=== PATIENT | female | born 1960 | race Caucasian/White ===

== ENCOUNTER → 2017-11-10 12:10 | Outpatient (CLI) | payer OTHER, SELFPAY ==
[2017-11-10 14:19] LABS: Anion Gap 7 (5-15); BUN 15 mg/dL (7-18); BUN/Creat Ratio 18.6 RATIO (10-20); Calcium,Total 9.2 mg/dL (8.5-10.1); Chloride 102 mmol/L (98-107); Creatinine, Serum 0.81 mg/dL (0.55-1.02); EST Glomerular Filtration Rate 78 mL/min (>60); Est Glom Filt Rate - Afr Amer 94 mL/min (>60); Glucose 86 mg/dL (74-106); Sodium Level 139 mmol/L (136-145)
== END ==
PROVIDERS: Visit Provider Nurse Practitioner Family
DX: I10 Essential (primary) hypertension (principal); R68.89 Other general symptoms and signs
CPT/HCPCS: 36415; 80048; 84443

== ENCOUNTER → 2018-04-07 13:33 | Outpatient (CLI) | payer OTHER, SELFPAY ==
--- NOTE | 2018-04-07 13:37 | BI_ITS ---
MAMMOGRAPHY - BILATERAL SCREENING 3-D ISMAEL SYNTHESIS REASON FOR EXAM: Female, 57 years old. Bilateral Screening 3-D tomosynthesis PERTINENT HISTORY: Asymptomatic. Right excisional breast biopsy 1997. Family breast carcinoma, maternal aunts and paternal uncle. TECHNIQUE: Digital bilateral breast ismael (3D mammographic acquisition) in the CC and MLO projections. 2-D mediolateral oblique (MLO) and craniocaudad (CC) views of both breasts were obtained. CAD: Full Field Digital Mammography with Computer Added Detection was performed. COMPARISON: 12/17/2016 FINDINGS: The breast composition is heterogeneously dense that can obscure small breast masses. No significant asymmetric density, architecture distortion, abnormal microcalcification cluster, dominant mass, adenopathy, skin thickening or nipple retraction identified. Coarse benign-appearing calcifications. BI/SCREENING MAMM (CAD), BILAT IMPRESSION: No mammographic signs of malignancy. Routine yearly mammograms recommended. ASSESSMENT CATEGORY: BIRADS Category 2: Benign. A letter regarding these results will be sent to the patient by the facility within 30 days. FOLLOW UP RECOMMENDATION: Yearly follow up mammogram recommended. (A) Negative mammographic results should not deter biopsy as a palpable lesion should be followed on clinical grounds and biopsy performed if clinically persistent for 3 months or increasing size. Approximately 10% of breast cancers are not detected by mammography. A normal mammogram should not delay biopsy of a clinically suspicious abnormality. Electronically Signed: Melquiades Dumont, at 22:14 EDT Tel , Service support ,
== END ==
PROVIDERS: Family Provider Family Medicine; PCP Family Medicine; Visit Provider Obstetrics & Gynecology
DX: Z12.31 Encounter for screening mammogram for malignant neoplasm of breast (principal)
CPT/HCPCS: 77063; 77067

== ENCOUNTER 2018-05-30 18:30 | Outpatient (RCR) | payer OTHER, SELFPAY ==
--- NOTE | 2018-04-01 13:14 | MASS.EVAL ---
Massage Therapy Evaluation: INITIAL EVALUATION: DATE: 03/16/18 PT NAME: SARAH RAMIREZ : 62 V#: [id number] REFERRING PHYS: DR. 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 MAZARIEGOS WITH A DIAGNOSIS OF BACK PAIN. SHE PRESENTS TODAY WITH THE SYMPTOMS OF PAIN IN THE LEFT SCAPULA AND TENSION THROUGHOUT THE NECK AND SHOULDERS. SHE REPORTS THAT THE PAIN IN 7/10 WORST AND A 0/10 AT REST. THE SYMPTOMS HAVE BEEN PRESENT FOR THE PAST FEW MONTHS AND COMMENCED DUE TO TRAVELLING AND WORKING. SHE RATES HER OVERALL HEALTH TO BE IN GOOD CONDITION WITH NO LIMITATIONS IN DAILY ACTIVITES. SARAH IS NOT TAKING AND MEDICATIONS CURRENTLY. OBJECTIVE: THE FIRST TREATMENT CONSISTED OF UPPER BODY MODERATE TO DEEP TISSUE MASSAGE. I FOCUSED ON CERVICAL AND THORACIC PARASPINALS, UPPER TRAPEZIUM, LEVATOR, SCALENES, RHOMBOIDS AND SERRATUS. TRIGGER POINT THERAPY AND NECK STRETCHES WERE PERFORMED. ASSESSMENT: MUSCLE TENSION AND TENDERNESS WAS MOST ON LEFT SIDE FROM T10-12 AND SERRATUS AND RHOMBOIDS. OVERALL THE STRESS LEVEL DECREASED POST MASSAGE AND THE TISSUES BECAME SOFTER AND LESS ROPEY. I FEEL THAT SARAH IS A GREAT CANDIDATE FOR MASSOTHERAPY AT THIS TIME I HAVE TREATED HER IN THE PAST WITH SUCCESS. PLAN: PLAN OF CARE WAS REVIEWED WITH THE PATIENT AND THE PATIENT IS TO BE SEEN ON A REGULAR BASIS FOR ONE HOUR SESSIONS FOR A TOTAL OF TEN VISITS IN 2018. KACEY WHATLEY LMT
--- NOTE | 2018-04-01 13:27 | MASS.EVAL_ITS ---
Massage Therapy Evaluation: INITIAL EVALUATION: DATE: 03/16/18 PT NAME: SARAH RAMIREZ : 62 V #: [id number] REFERRING PHYS: DR. 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 MAZARIEGOS WITH A DIAGNOSIS OF BACK PAIN. SHE PRESENTS TODAY WITH THE SYMPTOMS OF PAIN IN THE LEFT SCAPULA AND TENSION THROUGHOUT THE NECK AND SHOULDERS. SHE REPORTS THAT THE PAIN IN 7/10 WORST AND A 0/10 AT REST. THE SYMPTOMS HAVE BEEN PRESENT FOR THE PAST FEW MONTHS AND COMMENCED DUE TO TRAVELLING AND WORKING. SHE RATES HER OVERALL HEALTH TO BE IN GOOD CONDITION WITH NO LIMITATIONS IN DAILY ACTIVITES. SARAH IS NOT TAKING AND MEDICATIONS CURRENTLY. OBJECTIVE: THE FIRST TREATMENT CONSISTED OF UPPER BODY MODERATE TO DEEP TISSUE MASSAGE. I FOCUSED ON CERVICAL AND THORACIC PARASPINALS, UPPER TRAPEZIUM, LEVATOR, SCALENES, RHOMBOIDS AND SERRATUS. TRIGGER POINT THERAPY AND NECK STRETCHES WERE PERFORMED. ASSESSMENT: MUSCLE TENSION AND TENDERNESS WAS MOST ON LEFT SIDE FROM T10-12 AND SERRATUS AND RHOMBOIDS. OVERALL THE STRESS LEVEL DECREASED POST MASSAGE AND THE TISSUES BECAME SOFTER AND LESS ROPEY. I FEEL THAT SARAH IS A GREAT CANDIDATE FOR MASSOTHERAPY AT THIS TIME I HAVE TREATED HER IN THE PAST WITH SUCCESS. PLAN: PLAN OF CARE WAS REVIEWED WITH THE PATIENT AND THE PATIENT IS TO BE SEEN ON A REGULAR BASIS FOR ONE HOUR SESSIONS FOR A TOTAL OF TEN VISITS IN 2018. KACEY WHATLEY LMT
--- NOTE | 2018-08-27 13:43 | MASS.DISCH ---
Massage Therapy Discharge Summary: Discharge Date: 08/26/2018 Norah was seen for a massotherapy evaluation on 03/16/18 with the diagnosis of back pain and spasms. She was treated with three sessions of massage therapy consisting of moderate pressure soft tissue techniques, myofascial release and trigger point compression to her cervical and throcacic areas. Norah responded well to the therapy by reporting decreased tension in her upper- mid back. Her goals for therapy were not met throughout the treatment sessions due to not scheduling more appointments within the time frame given. At this time this patient is being discharged from our care at [facility] facility.
== END 2018-05-30 19:00 | disposition home or self-care (01) ==
LOC: MASS 18:30
PROVIDERS: Family Provider Family Medicine; PCP Family Medicine; Visit Provider Family Medicine
DX: M54.9 Dorsalgia, unspecified (principal)
CPT/HCPCS: 97124

== ENCOUNTER → 2019-04-20 | Outpatient (CLI) | payer OTHER, SELFPAY ==
[2018-01-25 14:48] VITALS: BMI 22.5
--- NOTE | 2019-04-20 10:22 | BI_ITS ---
MAMMOGRAPHY - BILATERAL SCREENING 3-D TOMOSYNTHESIS REASON FOR EXAM: Female, 58 years old. Bilateral Screening 3-D tomosynthesis PERTINENT HISTORY: Maternal aunt and paternal uncle with breast cancer. TECHNIQUE: 2-D mammograms and 3-D Tomosynthesis of the breast (s) were performed. CAD was performed. COMPARISON: 04/07/18 and 01/16/2016 FINDINGS: The breast composition is heterogeneously dense that can obscure small breast masses. Scattered benign calcifications are seen. No dense spiculated masses or suspicious microcalcifications are identified. No architectural distortion is identified. There is no skin thickening or retraction. There has been no significant change since the prior study. BI/SCREEN MAMM (CAD) W/ISMAEL BILAT IMPRESSION: No mammographic signs of malignancy. Routine yearly mammograms recommended. ASSESSMENT CATEGORY: BIRADS Category 2: Benign. A letter regarding these results will be sent to the patient by the facility within 30 days. FOLLOW UP RECOMMENDATION: Yearly follow up mammogram recommended. (A) Approximately 10% of breast cancers are not detected by mammography. A normal mammogram should not delay biopsy of a clinically suspicious abnormality. Electronically Signed: Alvino Mckeon MD at 16:19 EDT Tel [phone], Service support ,
[2019-04-20 11:23] LABS: Hemoglobin A1c 5.5 % (4.2-6.3)
[2019-04-20 11:32] LABS: Thyroid Stim Hormone (TSH) 3.26 uIU/mL (0.358-3.74)
== END | disposition home or self-care (01) ==
LOC: OPBI 10:16
PROVIDERS: Family Provider Family Medicine; PCP Family Medicine; Referring Provider Obstetrics & Gynecology; Visit Provider Obstetrics & Gynecology
DX: R53.83 Other fatigue (principal); Z02.1 Encounter for pre-employment examination; Z12.31 Encounter for screening mammogram for malignant neoplasm of breast
CPT/HCPCS: 36415; 77063; 77067; 83036; 84443

== ENCOUNTER 2019-09-25 10:48 | Outpatient (RCR) | payer OTHER, SELFPAY ==
--- NOTE | 2019-09-26 15:11 | MASS.EVAL_ITS ---
Massage Therapy Evaluation: Initial Evaluation Date: 09/25/2019 SUBJECTIVE: Norah is a 59 year old female who was referred to the [facility] for a massotherapy evaluation by Dr. Villegas with the diagnosis of right shoulder pain. She presents today with the symptoms of pain, stiffness and tension in the neck, mid back, and right shoulder. She has reported that she gets pain into her right wrist. she reports of minimal relief with stretching. She did report that she does get relief if she runs consistantly. OBJECTIVE: Upon observation Norah has some posture issues with her head and shoulders forward from the neutral position in sitting and standing. After examination and palpation, I found Norah to have high muscle tension with tenderness and myofascial restrictions in her sub occipitals, levator scapulae, trapezius, rhomboids, scalenes, and thoracic paraspinals. Her QL?s, lumbar paraspinals, piriformis, glute medius and minimus all were very tight with fascial restrictions, tender points and trigger points. The first treatment consisted of a one hour massage to her upper body with myofascial release, muscle stripping, trigger point compression techniques, and cervical manual traction. ASSESSMENT: I feel that Norah is a good candidate for massotherapy at this time. She had a favorable response to the first treatment with reduction in her muscle aches, pain and tension. She also had improvement in her cervical flexibility and low back flexibility. PLAN: The plan of care was reviewed with the patient. The patient is to be seen on an as needed basis for a total of ten sessions with the recommendation of once every month for a one hour treatment.
--- NOTE | 2020-08-12 12:36 | MASS.DISCH ---
Massage Therapy Discharge Summary: Discharge Date: 08/12/2020 Norah was seen for a massotherapy evaluation on 09/25/2019 with the diagnosis of right shoulder pain. She was treated with one session of massage therapy consisting of deep pressure soft tissue techniques, myofascial release and trigger point compression to her cervical, thoracic, and low back. At this time this patient is being discharged from our care at [facility] facility.
== END 2019-09-25 19:00 | disposition home or self-care (01) ==
LOC: MASS 10:48
PROVIDERS: PCP Nurse Practitioner Family; Referring Provider Nurse Practitioner Family; Visit Provider Nurse Practitioner Family
DX: M25.511 Pain in right shoulder (principal)
CPT/HCPCS: 97124

== ENCOUNTER 2020-03-05 10:28 | Emergency (ER) | payer OTHER, SELFPAY ==
[2020-03-05 10:29] VITALS: BP 149/98; PULSE 83; RESP 15; TEMP 36.4; O2SAT 97; BMI 22.4
--- NOTE | 2020-03-05 10:38 | ED.VIS.GEN ---
History of Present Illness Chief Complaint: Lower Extremity Injury Informant: Patient Onset: Today Narrative: Left knee injury while working upstairs. Tripped over IV tubing on a flexed knee. No head injuries. Able to ambulate. No paresthesias. No past medical history. Able to tolerate Motrin. No history of gastric ulcers or kidney injury. Prior similar symptoms: No Past Medical History - Allergies and Home Meds Allergies/Adverse Reactions: Allergies acetaminophen [From Darvocet-N] Allergy (Severe, Verified 03/05/20 10:33) Unknown propoxyphene [From Darvocet-N] Allergy (Severe, Verified 03/05/20 10:33) Unknown codeine Adverse Reaction (Verified 03/05/20 10:33) Upset Stomach Primary Care Physician: Tiara Villegas NP-C [Primary Care Provider] - Past Medical History: - - Hypertension Smoking Status: Never smoker Review of Systems General: Denies: Chills, Fever, Sweats Eyes: Denies: Visual changes - bilaterally, Diplopia ENT: Denies: Rhinorrhea, Sore throat Cardiovascular: Denies: Chest pain, Palpitations Respiratory: Denies: Dyspnea, Cough, Dyspnea on exertion Gastrointestinal: Denies: Abdominal pain, Nausea, Vomiting, Diarrhea, Melena, Hematochezia Genitourinary: Denies: Dysuria, Hematuria, Frequency Musculoskeletal: Reports: Arthralgias. Denies: Back pain, Extremity Pain Skin: Denies: Rash, Wounds Neurological: Denies: Headache, Weakness, Numbness Physical Exam Vital Signs/Narrative: Vital Signs Temp Pulse Resp BP Pulse Ox 03/05/20 10:29 97.6 F L 83 15 149/98 H 97 Inital Vital Signs reviewed: Yes General: Well nourished, Well developed, No Acute Distress Head: Normocephalic, Atraumatic Eyes: Perrl, EOMI ENT: Moist mucous membranes, No rhinorrhea Neck: Supple, Nontender Cardiovascular: Regular rate, Regular rhythm, No murmurs Respiratory: No distress, CTA bilaterally, Chest nontender Abdomen: Soft, Nontender, Nondistended, Normal bowel sounds Back: Nontender, Normal Inspection Extremities: No edema, - - Left lower extremity negative logroll, knee extensor mechanism intact. Mild tenderness inferior patellar and proximal tibia. Negative varus and valgus. No deformities. Skin intact. Neuro vas intact distally. Skin: Normal color, No rash Neurological: Alert, Oriented x3, Cranial nerves II-XII grossly intact, Normal Strength, Normal Sensation Psychological: Normal affect, Normal Mood Diagnostic/Tx/Re-eval - Medical Decision Making Clinical Impression(s) from Imaging Studies Knee X-Ray 03/05/20 10:45 IMPRESSION: Normal x-ray examination of the knee. Electronically Signed: Darren Maurer, at 11:08 EDT , Service support , Ice was placed, Motrin given. X-ray obtained was negative. Patient reports difficulty walking, Mango wrap provided. She preferred to use a walker for stabilization. She is given appropriate work restrictions. She will continue Motrin every 6 hours as needed and follow-up with occupational health. All questions were answered. ED Disposition - Plan for ED Patient: Disposition: Home or Assisted Living Diagnosis: Contusion of left knee, initial encounter Instructions: ED EXTREMITY CONTUSION Lower Referrals: Tiara Villegas, JASON-C [Primary Care Provider] - Additional Instructions: Follow-up with now clinic to 3 days reevaluation and further clearance as needed. Continue Motrin total of 600 mg every 6 hours as needed for pain control. Mango wrap and walker use as needed.
--- NOTE | 2020-03-05 10:45 | RAD_ITS ---
STUDY: X-RAY - LEFT KNEE REASON FOR EXAM: Female, 59 years old. Knee pain from fall today. Pain is just inferior to the patella. TECHNIQUE: 4 view(s) of the knee. COMPARISON: None. FINDINGS: Normal visualized distal femur. Normal visualized proximal tibia and fibula. Normal proximal tibiofibular articulation. Normal medial femorotibial compartment. Normal lateral femorotibial compartment. Normal patellofemoral articulation. The soft tissue structures are unremarkable. RAD/Knee 4 or More Views IMPRESSION: Normal x-ray examination of the knee. Electronically Signed: Darren Maurer, at 11:08 EDT , Service support ,
[2020-03-05] MEDS: Ibuprofen 600 MG Tablet PO (10:56)
== END 2020-03-05 11:49 | disposition home or self-care (01) ==
PROVIDERS: Emergency Provider Emergency Medicine; PCP Nurse Practitioner Family
DX: S80.02XA Contusion of left knee, initial encounter (principal); W01.0XXA Fall on same level from slipping, tripping and stumbling without subsequent striking against object, initial encounter; Y93.9 Activity, unspecified; Y92.9 Unspecified place or not applicable
CPT/HCPCS: 73564; 99283

== ENCOUNTER → 2020-03-16 07:28 | Outpatient (CLI) | payer OTHER, SELFPAY ==
[2020-03-11 16:05] VITALS: BMI 22.4
--- NOTE | 2020-03-16 07:33 | MRI_ITS ---
STUDY: MRI LEFT KNEE REASON FOR EXAM: Female, 59 years old. Contusion. Fall February 28, 2020. Pain TECHNIQUE: Standardized fat and water weighted pulse sequences were obtained in all 3 orthogonal planes. COMPARISON: X-ray March 05, 2020 FINDINGS: There is intra-substance myxoid degeneration of the medial meniscus, but without a demonstrated meniscal tear. Normal hyaline cartilage of the medial femorotibial compartment. Normal medial femoral condyle and tibial plateau. Normal medial collateral ligamentous complex (MCL). Normal distal semimembranosus, gracilis and semitendinosus tendons. Normal lateral meniscus. Normal hyaline cartilage of the lateral femorotibial compartment. There is reactive marrow edema of the lateral tibial plateau, series 3 images 30 through . There is linear diminished signal nondisplaced fracture, series 6 images 07/29 through . Normal proximal tibiofibular articulation. Normal lateral collateral (fibular) ligament. Normal popliteus tendon. Normal biceps femoris tendon. Normal anterior cruciate ligament (ACL). Normal posterior cruciate ligament (PCL). Normal congruent patellofemoral articulation. Normal hyaline cartilage of the patellofemoral compartment. Normal medial and lateral patellar retinaculum. Normal quadriceps tendon. Normal patellar tendon. Normal Hoffa''s fat pad. There is a moderate volume joint effusion. The soft tissues are unremarkable. The otherwise visualized osseous structures are unremarkable. MRI/Lower Ext Joint Only (Routine) IMPRESSION: Lateral tibial plateau fracture. Joint effusion. Electronically Signed: Jeff Mcduffie MD at 9:28 EDT , Service support ,
== END ==
PROVIDERS: PCP Nurse Practitioner Family; Referring Provider Physician Assistant; Visit Provider Physician Assistant
DX: S80.02XA Contusion of left knee, initial encounter (principal)
CPT/HCPCS: 73721

== ENCOUNTER → 2020-04-17 08:41 | Outpatient (CLI) | payer OTHER, SELFPAY ==
[2020-04-17 07:54] VITALS: BMI 22.4
--- NOTE | 2020-04-17 08:42 | RAD_ITS ---
STUDY: X-RAY - LEFT KNEE REASON FOR EXAM: Female, 59 years old. LATERAL TIBIAL PLAT FX FOLLOW UP TECHNIQUE: 4 view(s) of the knee. COMPARISON: 03/05/2020 FINDINGS: Normal visualized distal femur. Normal visualized proximal tibia and fibula. Normal proximal tibiofibular articulation. Normal medial femorotibial compartment. Normal lateral femorotibial compartment. Normal patellofemoral articulation. The soft tissue structures are unremarkable. RAD/Knee 4 or More Views IMPRESSION: Normal x-ray examination of the knee. Electronically Signed: Thierry Bradshaw MD at 16:17 EDT Tel , Service support ,
== END ==
PROVIDERS: PCP Nurse Practitioner Family; Referring Provider Orthopaedic Surgery; Visit Provider Orthopaedic Surgery
DX: S80.02XA Contusion of left knee, initial encounter (principal)
CPT/HCPCS: 73564

== ENCOUNTER → 2020-05-10 | Outpatient (CLI) | payer OTHER, SELFPAY ==
[2020-04-17 07:54] VITALS: BMI 22.4
[2020-05-15 20:24] LABS: HPV APTIMA, High Risk Negative (Negative)
[2020-05-15 20:25] LABS: HPV Reflexed? YES, CHARGE PATIENT
== END | disposition home or self-care (01) ==
LOC: LABSPEC 14:30
PROVIDERS: PCP Student in an Organized Health Care Education/Training Program; Visit Provider Student in an Organized Health Care Education/Training Program
DX: Z12.4 Encounter for screening for malignant neoplasm of cervix (principal)
CPT/HCPCS: 87624; 88175; G0145

== ENCOUNTER 2020-06-03 07:00 | Outpatient (RCR) | payer OTHER, SELFPAY ==
[2020-04-17 07:54] VITALS: BMI 22.4
--- NOTE | 2020-04-29 09:22 | HP.PTEVAL_ITS ---
Patient's Visit Information SARAH RAMIREZ is a 59 year old F referred to Physical Therapy by Dr. George Bhardwaj DO with a diagnosis of Left Tibial Plateau Fracture. Date of Evaluation: 04/29/20 Physical Therapist: Eloise Cárdenas DPT - Visit Plan Frequency: 3x /Week Duration: 4 Weeks Plan: LE strength and functional mobility- GENTLE and slow progression - Subjective Tripped on IV tubing March 05 and went down on the left knee. They took her straight to x-ray- showed no fracture- she had an MRI- showed a left tibial plateau fracture. Got weight bearing on Apr 24. Still wants her to wear support with the brace and is using a w/c if she goes long distances or a quad cane- tried a single point cane 10 days ago and did not feel it gave her enough stability. Is wearing a hinged knee brace all the time including sleeping. Pain is located in the later aspect of the knee- generally she does not have pain but when she walks longer distances its painful 1-2/10. Radiates to the ankle- no radiating pain to into thigh. Describes the pain as sharp. Most of the time she is painfree. No N/T in the toes. Does have some mild backpain but that is not uncommon but nothing she is to worried about. No buckling of the knee but does not feel like its stable. 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 Sleep: slightly- wearing the brace- not horrible- belly sleeper. PMHx/Meds: none since injury. Very active- bike, run and yoga- was supposed to go on a 300 mile bike ride prior to injury. - Objective Posture: FH, RS- can correct with verbal cues. Gait: antalgic- hinged knee brace on the left without full extension for heel strike. HR/TR: able with UE A. SLS: 8 sec then LOB. ROM: 5-145 degrees. Strength: Ankle: 5/5, Knee: quad set visible with moderate quad atrophy- no lag with SLR- Hip: 4+/5 throughout Core: fair plus. Flex: HS: mild, Gastroc: mild. Stairs: asc/desc 8 recip with 1 HR- hesistant with ascent and poor control with descent. - Goals Goal 1:: Patient will be I with HEP and progression Goal Time Frame: 4-6 Weeks Goal 2:: Patient will ambulate >300 feet with a normalized gait pattern Goal Time Frame: 4-6 Weeks Goal 3:: Patient will SLS for 30 sec without LOB Goal Time Frame: 4-6 Weeks Goal 4:: Patient will report 0/10 pain for 1 week Goal Time Frame: 4-6 Weeks - Rehabilitation Potential Physical Therapy Diagnosis: Patient presents with hypomobility- she has decreased ROM, strength and muscular endurance leading to increased pain and decreased ability to perform ADL's. Rehabilitation Potential: Good - Anticipated Interventions Patient/Client Instruction: Educate patient on: Benefits of Fitness Program Therapeutic Exercise to Include: Strength training, Endurance training, Balance training, Body mechanics, Postural training, Flexibilty training, Gait and locomotor training, Passive ROM, Active ROM, Dynamic Lumbar Stabilization, Scapular Strength/Stabilization For the Purpose of:: To improve muscle performance and motor function TENS: Yes Cryotherapy (ice pack, ice massage): Yes Thermo therapy (hot pack): Yes For the Purpose of:: To decrease pain Thank you for the opportunity to evaluate your patient. For Medicare and Medicare HMO plans, please review the plan of care and approve it. It will need to be FAXED BACK to us at [phone] for Medicare purposes. For Medicare only, by signing this I certify the plan of care. Please let me know if there are questions or concerns regarding this plan of care. Physician Lisa minaya: Date:
--- NOTE | 2020-06-03 07:22 | HP.PTREVAL_ITS ---
Dr. George Bhardwaj, DO, It has been my pleasure to treat SARAH RAMIREZ over the last 12 visits for Left Tibial Plateau Fracture. Please see the progress note below for an update on the physical therapy plan of care! Subjective: Patient feels that the knee is not as strong as the other knee- is still wearing the brace all the time again due to the set back. 85% due to not having out of the brace. Sees the MD Wednesday. Steps she has pain in the front of the knee- more going down than up- 2/10- instantly goes away after she does the stairs. Moving quickly she has the sensation of lack of stability which is getting better. Is not back to work yet- but plans to go back after she sees the MD on . Feels that she may need more therapy due to her goals and the set back. Objective/Function: Posture: good throughout treatment session in supported and unsupported sitting. Gait: slightly antalgic- mild decrease stance on the left LE. HR/TR: able with UE A. Heel Walking increased discomfort in the anterior knee Toe Walking: no pain SLS: 15 sec with significant ankle instability and arm swing for balance. ROM: 0-145 degrees. Strength: Ankle: 5/5, Knee: 4+/5 Hip: 4+/5 throughout Core: fair plus. Flex: HS: mild, Gastroc: mild. Stairs: asc/desc 8 recip with no HR- Acend good propulsion with the left LE- reji cending: poor eccentric control on the left and reports discomfort Plan Plan: Continue 2x a week for 4 weeks pending C9 approval from physician- working towards goals of biking long distance (endurance), eccentric strength for stairs- and return to running as able Goals Goal 1:: Patient will be I with HEP and progression Goal Time Frame: 4-6 Weeks Goal Progress: Progressing Goal 2:: Patient will ambulate >300 feet with a normalized gait pattern Goal Time Frame: 4-6 Weeks Goal Progress: Progressing Goal 3:: Patient will SLS for 30 sec without LOB Goal Time Frame: 4-6 Weeks Goal Progress: Progressing Goal 4:: Patient will report 0/10 pain for 1 week Goal Time Frame: 4-6 Weeks Goal Progress: Progressing Anticipated Interventions Patient/Client Instruction: Educate patient on: Benefits of Fitness Program Therapeutic Exercise to Include: Strength training, Endurance training, Balance training, Body mechanics, Postural training, Flexibilty training, Gait and locomotor training, Passive ROM, Active ROM, Dynamic Lumbar Stabilization, Scapular Strength/Stabilization For the Purpose of:: To improve muscle performance and motor function TENS: Yes Cryotherapy (ice pack, ice massage): Yes Thermo therapy (hot pack): Yes For the Purpose of:: To decrease pain Please do not hesitate to contact me at [phone] by phone or if you have questions or concerns regarding this new plan of care! Sincerely, SCOTTY MendietaT
--- NOTE | 2020-08-08 11:44 | HP.PT.NRP ---
SARAH RAMIREZ was seen in my office for initial evaluation on 04/29/20. The following Plan of Care was established for this patient: Initial Frequency: 3x /Week Initial Duration: 4 Weeks Patient/Client Instruction: Educate patient on: Benefits of Fitness Program Therapeutic Exercise to Include: Strength training, Endurance training, Balance training, Body mechanics, Postural training, Flexibilty training, Gait and locomotor training, Passive ROM, Active ROM, Dynamic Lumbar Stabilization, Scapular Strength/Stabilization For the Purpose of:: To improve muscle performance and motor function TENS: Yes Cryotherapy (ice pack, ice massage): Yes Thermo therapy (hot pack): Yes For the Purpose of:: To decrease pain This patient was last seen in our office . Pertinent comments regarding their Physical therapy will appear below: Patient has not returned to PT in over 8 weeks- appropriate for discharge with continuation of HEP and return to MD for further evaluation. At this point I will be discontinuing this patient from physical therapy. I would be happy to see this patient again in the future if found appropriate by the physician. Thank you! Eloise Cárdenas DPT
== END 2020-06-03 19:00 | disposition home or self-care (01) ==
LOC: PT 07:00
PROVIDERS: PCP Nurse Practitioner Family; Referring Provider Orthopaedic Surgery; Visit Provider Orthopaedic Surgery
DX: S82.143D Displaced bicondylar fracture of unspecified tibia, subsequent encounter for closed fracture with routine healing (principal); S80.02XD Contusion of left knee, subsequent encounter
CPT/HCPCS: 97110; 97161; 97164

== ENCOUNTER → 2020-08-26 07:18 | Outpatient (CLI) | payer OTHER, SELFPAY ==
[2020-03-20 10:24] VITALS: BMI 22.4
[2020-06-05 08:05] VITALS: BMI 22.4
--- NOTE | 2020-08-26 07:20 | BI_ITS ---
MAMMOGRAPHY - BILATERAL SCREENING REASON FOR EXAM: Female, 60 years old. Routine annual screening examination. PERTINENT HISTORY: FM HX 3 MAT AUNTS AGES 50,70,80, PAT UNCLE 60''S, QUIT OTC HRT IN 2013, RT EXC BX 1997 TECHNIQUE: Digital bilateral breast ismael (3D mammographic acquisition) in the CC and MLO projections. 2-D mediolateral oblique (MLO) and craniocaudad (CC) views of both breasts were obtained. CAD: Full Field Digital Mammography with Computer Added Detection was performed. COMPARISON: None. FINDINGS: Breast Composition: There is a cluster of microcalcification is tagged by CAD for which further evaluation by magnification views and ultrasound would be recommended. No other significant abnormalities are identified. BI/SCREEN MAMM (CAD) W/ISMAEL BILAT IMPRESSION: Further imaging evaluation recommended, as described above. (E) ASSESSMENT CATEGORY: BIRADS Category 0: Incomplete. Need additional imaging evaluation. A letter regarding these results will be sent to the patient by the facility within 30 days. Approximately 10% of breast cancers are not detected by mammography. A normal mammogram should not delay biopsy of a clinically suspicious abnormality. [id number] Electronically Signed: Timbo Ambrosio, at 7:09 EST Tel , Service support ,
== END ==
PROVIDERS: PCP Nurse Practitioner Family; Referring Provider Student in an Organized Health Care Education/Training Program; Visit Provider Student in an Organized Health Care Education/Training Program
DX: Z12.31 Encounter for screening mammogram for malignant neoplasm of breast (principal)
CPT/HCPCS: 77063; 77067

== ENCOUNTER → 2020-12-27 08:05 | Outpatient (CLI) | payer OTHER, SELFPAY ==
[2020-06-05 08:05] VITALS: BMI 22.4
--- NOTE | 2020-12-27 08:09 | US_ITS ---
STUDY: ULTRASOUND OF THE FEMALE PELVIS - COMPLETE REASON FOR EXAM: Female, 60 years old. Postmenopausal bleeding. LMP: The patient is postmenopausal. TECHNIQUE: Transabdominal and Transvaginal TECHNICAL QUALITY: Adequate. COMPARISON: None. FINDINGS: The uterus is retroverted and is in a midline position. The uterus measures 4.7 cm x 2.9 cm x 2.4 cm. There is a Nabothian cyst of the cervix. The endometrium measures 1.3 mm in thickness, and is hyperechoic. There is no demonstrated endometrial mass. The myometrium is of heterogeneous echotexture although no focal fibroid is seen. I.U.D. - The patient does not have an I.U.D. The right ovary is visualized. The right ovary measures 2.6 cm x 1.7 cm x 0.8 cm. There is no right ovarian cyst or ovarian mass. There is no visualized right adnexal mass or complex lesion. There is normal arterial and normal venous vascularity. The left ovary is visualized. The left ovary measures 1.6 cm x 1.6 cm x 0.7 cm. There is no left ovarian cyst or ovarian mass. There is no visualized left adnexal mass or complex lesion. There is normal arterial and normal venous vascularity. There is minimal fluid surrounding the fundal portion of the uterus. The pre void volume of the bladder was 890 ml. Polycystic ovary disease: No. US/Transvaginal Non- IMPRESSION: Heterogeneous echotexture of the myometrium. Trace amount of fluid seen near the fundal portion of uterus. Electronically Signed: Darren Maurer MD at 12:55 EDT , Service support ,
--- NOTE | 2020-12-27 08:09 | US_ITS ---
STUDY: ULTRASOUND OF THE FEMALE PELVIS - COMPLETE REASON FOR EXAM: Female, 60 years old. Postmenopausal bleeding. LMP: The patient is postmenopausal. TECHNIQUE: Transabdominal and Transvaginal TECHNICAL QUALITY: Adequate. COMPARISON: None. FINDINGS: The uterus is retroverted and is in a midline position. The uterus measures 4.7 cm x 2.9 cm x 2.4 cm. There is a Nabothian cyst of the cervix. The endometrium measures 1.3 mm in thickness, and is hyperechoic. There is no demonstrated endometrial mass. The myometrium is of heterogeneous echotexture although no focal fibroid is seen. I.U.D. - The patient does not have an I.U.D. The right ovary is visualized. The right ovary measures 2.6 cm x 1.7 cm x 0.8 cm. There is no right ovarian cyst or ovarian mass. There is no visualized right adnexal mass or complex lesion. There is normal arterial and normal venous vascularity. The left ovary is visualized. The left ovary measures 1.6 cm x 1.6 cm x 0.7 cm. There is no left ovarian cyst or ovarian mass. There is no visualized left adnexal mass or complex lesion. There is normal arterial and normal venous vascularity. There is minimal fluid surrounding the fundal portion of the uterus. The pre void volume of the bladder was 890 ml. Polycystic ovary disease: No. US/Pelvic (Non ) IMPRESSION: Heterogeneous echotexture of the myometrium. Trace amount of fluid seen near the fundal portion of uterus. Electronically Signed: Darren Maurer MD at 12:55 EDT , Service support ,
== END ==
PROVIDERS: PCP Nurse Practitioner Family; Referring Provider Nurse Practitioner Family; Visit Provider Nurse Practitioner Family
DX: N95.0 Postmenopausal bleeding (principal)
CPT/HCPCS: 76830; 76856

== ENCOUNTER → 2021-07-02 07:18 | Outpatient (CLI) | payer OTHER, SELFPAY ==
[2021-07-02 08:35] LABS: ALB/GLOB Ratio 0.9 RATIO (0.9-2.4); AST(SGOT) 27 U/L (15-37); Alanine Aminotransfer ALT/SGPT 36 U/L (13-56); Albumin, Serum 3.6 g/dL (3.2-5.0); Alkaline Phosphatase 85 U/L (45-117); Anion Gap 5 (5-15); BUN 19 mg/dL (7-18); BUN/Creat Ratio 23.2 RATIO (10-20); Calcium,Total 8.7 mg/dL (8.5-10.1); Chloride 106 mmol/L (98-107); Cholesterol 183 mg/dL (200); Creatinine, Serum 0.82 mg/dL (0.55-1.02); EST Glomerular Filtration Rate 76 mL/min (>60); Est Glom Filt Rate - Afr Amer 92 mL/min (>60); Globulin 3.8 g/dL (2.2-4.2); Glucose 92 mg/dL (74-106); High Density Lipoprotein 56 mg/dL; Protein, Total 7.4 g/dL (6.4-8.2); Sodium Level 139 mmol/L (136-145); Thyroid Stim Hormone (TSH) 2.43 uIU/mL (0.358-3.74); Triglycerides 94 mg/dL; Very Low Density Lipoprotein 19 mg/dL (5-40)
== END ==
PROVIDERS: PCP Nurse Practitioner Family; Referring Provider Nurse Practitioner Family; Visit Provider Nurse Practitioner Family
DX: Z13.1 Encounter for screening for diabetes mellitus (principal); Z13.29 Encounter for screening for other suspected endocrine disorder; Z13.6 Encounter for screening for cardiovascular disorders
CPT/HCPCS: 36415; 80053; 80061; 84439; 84443

== ENCOUNTER 2021-07-02 08:58 | Outpatient (RCR) | payer OTHER, SELFPAY ==
--- NOTE | 2021-07-14 15:17 | MASS.EVAL_ITS ---
Massage Therapy Evaluation: INITIAL EVALUATION : DATE: 07/02/21 PT NAME: SARAH RAMIREZ : 1960 V#: [id number] REF PHYS: DR. 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 SHE WAS REFERRED TO [facility] FOR A MASSOTHERAPY EVALUATION BY DR. JIMÉNEZ WITH A DIAGNOSIS CHRONIC SHOULDER AND BACK PAIN. SHE PRESENTS TODAY WITH PAIN IN THE LEFT SERRATUS AND RHOMBOID AREA. 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 SHE RATES HER OVERALL HEALTH TO BE IN GREAT CONDITION WITH LIMITATIONS WITH EVERY DAY TASKS. NO MEDICATIONS WERE LISTED AT THIS TIME. OBJECTIVE: THE FIRST TREATMENT CONSISTED OF A ONE HOUR DEEP TISSUE MASSAGE TO THE UPPER BODY. I FOCUSED ON THE CERVICAL AND THORACIC PARASPINALS, LEVATOR, TERES, RHOBOIDS, AND SERRATUS. TRIGGER POINT THERAPY AND NECK STRETCHES WERE PERFORMED. ASSESSMENT: UPON PALPATION THE PATIENT HAD VERY TIGHT MUSCLES WITH ACTIVE TRIGGER POINTS THAT REFERRED PAIN. THE LEFT SIDE SEEMED TO BE WHERE THE MOST PAIN AND PROBLEM AREAS WERE AT. I FEEL THAT SARAH IS A GREAT CANDIDATE FOR MASSOTHERAPY AT THIS TIME. PLAN: THE PLAN OF CARE WAS REVIEWED WITH THE PATIENT . THE PATIENT IS TO BE SEEN ON A REGULAR BASIS TILL MUSCLES HAVE RELAXED AND PAIN HAS SUBSIDED.
--- NOTE | 2021-08-12 12:39 | DS.PCM_ITS ---
Massage Therapy Discharge Summary: Initial Evaluation Date: 07/02/21 Diagnosis: Back and shoulder pain No. of Visits: 1 Date of last visit: 07/02/21 This patient is being discharged from our care at the [facility]. Thank you, Lee Ann Hooper LMT
== END 2021-07-02 19:00 | disposition home or self-care (01) ==
LOC: MASS 08:58
PROVIDERS: PCP Nurse Practitioner Family; Referring Provider Nurse Practitioner Family; Visit Provider Nurse Practitioner Family
DX: M54.9 Dorsalgia, unspecified (principal); M25.519 Pain in unspecified shoulder
CPT/HCPCS: 97124

== ENCOUNTER → 2021-07-22 07:08 | Outpatient (CLI) | payer OTHER, SELFPAY ==
--- NOTE | 2021-07-22 07:11 | BI_ITS ---
MAMMOGRAPHY - BILATERAL SCREENING 3-D TOMOSYNTHESIS REASON FOR EXAM: Female, 61 years old. Routine screening PERTINENT HISTORY: No significant family history. TECHNIQUE: 2-D mammograms and 3-D Tomosynthesis of the breast (s) were performed. CAD was performed. COMPARISON: 08/26/2020 FINDINGS: The breast composition is heterogeneously dense that can obscure small breast masses. Scattered benign calcifications are seen. No dense spiculated masses or suspicious microcalcifications are identified. No architectural distortion is identified. There is no skin thickening or retraction. Stable cluster of calcifications in the left breast There has been no significant change since the prior study. BI/SCRN MAMM (CAD)W/ISMAEL BILAT IMPRESSION: No mammographic signs of malignancy. Routine yearly mammograms recommended. ASSESSMENT CATEGORY: BIRADS Category 2: Benign. A letter regarding these results will be sent to the patient by the facility within 30 days. FOLLOW UP RECOMMENDATION: Yearly follow up mammogram recommended. (A) Approximately 10% of breast cancers are not detected by mammography. A normal mammogram should not delay biopsy of a clinically suspicious abnormality. Electronically Signed: Genaro Sandy MD at 10:33 EST , Service support ,
== END ==
PROVIDERS: PCP Nurse Practitioner Family; Referring Provider Nurse Practitioner Family; Visit Provider Nurse Practitioner Family
DX: Z12.31 Encounter for screening mammogram for malignant neoplasm of breast (principal)
CPT/HCPCS: 77063; 77067

== ENCOUNTER → 2023-07-19 | Outpatient (CLI) | payer SELFPAY ==
--- NOTE | 2023-07-19 07:42 | ART_ITS ---
Reason For Study: PVD Procedure A bilateral lower extremity continuous wave Doppler with analog waveform analysis,segmental pressures,and ankle brachial indexes with exercise. Left Segmental Pressures Left brachial= 129mmHg. Left posterior tibial artery = 152mmHg. Left dorsalis pedis artery = 144mmHg. Left digit = 87 mmHg. The left posterior tibial artery waveforms are triphasic. The left dorsalis pedis waveforms are triphasic. Right Segmental Pressures Right brachial= 126mmHg. Right posterior tibial artery = 155mmHg. Right dorsalis pedis artery = 150mmHg. Right digit = 93 mmHg. The right posterior tibial artery waveforms are triphasic. The right dorsalis pedis waveforms are triphasic. Indices The right ankle brachial index by the posterior tibial artery is 1.20. The right ankle brachial index by the dorsalis pedis is 1.16. The right digital-brachial index is 0.72. The right ankle brachial index by the posterior tibial artery post exercise is 1.19. The left ankle brachial index by the posterior tibial artery is 1.18. The left ankle brachial index by the dorsalis pedis is 1.12. The left digital-brachial index is 0.67. The left posterior tibial artery index post exercise is 1.23. VL/Lower Ext Art Exam w/ Exercise Interpretation Summary Right DEVANTE 1.2, normal. Doppler/PVR waveforms of the right leg normal at rest. T BI diminshed, pedal/digit disease vs spasm. Right lower extremity exhibits normal response to exercise. Left DEVANTE 1.18, normal. Doppler/PVR waveforms of the left leg normal at rest. TB I diminshed, pedal/digit disease vs spasm. Left lower extremity exhibits normal response to exercise. Ordering Physician: Trveor Mejia Referring Physician: ANAYA MEJIA Performed By: Dakota Huff, RVT
--- NOTE | 2023-07-19 07:42 | VDLE_ITS ---
Reason For Study: PVD RIGHT LEFT CFV is compressible, spontaneous, phasic, CFV is compressible, spontaneous, phasic, competent and demonstrates normal competent, and demonstrates normal augmentation. augmentation. FV is compressible, spontaneous, phasic, competent and demonstrates normal augmentation. POP V is compressible, spontaneous, phasic, competent and demonstrates normal augmentation. T/P Trunk is compressible. PTV is compressible. RT PerV is compressible. SFJ is competent and measures 0.54 cm. GSV proximal thigh measures 0.19 x 0.18 cm. GSV at knee measures 0.18 x 0.17 cm. GSV is competent throughout. SSV at junction is INCOMPETENT for greater than 0.5 seconds and measures 0.40 cm. SSV proximal calf is INCOMPETENT for greater than 0.5 seconds and measures 0.42 x 0.48 cm. Procedure This is a venous duplex using B-mode, color flow and spectral Doppler. Exam performed in department. The exam was diagnostic. VL/Venous Duplex US, Unilateral Interpretation Summary Deep veins of the right lower extremity are patent and compressible segmentally . There is no evidence of right lower extremity deep vein thrombosis. The right great sapheno us vein appears patent and compressible segmentally. Positive for reflux in the right small saphenous vein Ordering Physician: Trevor Andrade Referring Physician: Catherine Villegas Performed By: Dakota Huff RVT
== END | disposition home or self-care (01) ==
PROVIDERS: PCP Nurse Practitioner Family; Referring Provider Podiatrist; Visit Provider Podiatrist
DX: I87.2 Venous insufficiency (chronic) (peripheral) (principal); I73.89 Other specified peripheral vascular diseases; G57.81 Other specified mononeuropathies of right lower limb; M25.571 Pain in right ankle and joints of right foot
CPT/HCPCS: 93924; 93971

== ENCOUNTER → 2023-11-05 | Outpatient (CLI) | payer OTHER, SELFPAY ==
--- OUTSIDE RECORDS SUMMARY | 2023-11-05 06:09 | XMS RPT_ITS | CCD ---
Author Name Unknown Address [address] [place] [address] Organization [facility] Care Team Providers Care Supervisor Polishing Name Role Phone JOANNE QUEZADA Primary Care Physician Allergies Allergy Classification Reported Allergen(s) Allergy Type Date of Onset Reaction(s) Facility (1 source) Ibuprofen; Translations: [ibuprofen] Drug Allergy Blood pressure (observable entity) [facility] (1 source) Loratadine; Translations: [loratadine] Drug Allergy Confusion [facility] Medications Current Medications Medication Drug Class(es) Dates Sig (Normalized) Sig (Original) Chewable Calcium with Vitamin D (1 source) Start: 06-17-2021 Chewable Calcium with Vitamin D Chewed, qDay, 0 Refill(s) Start Date: 06/17/21 Status: Ordered promethazine hydrochloride 12.5 mg oral tablet (1 source) Phenothiazine Start: 12-26-2020 promethazine 12.5 mg oral tablet Dose : 12.5 mg = 1 tab(s), Oral, q4h, PRN for motion sickness, # 30 tab(s), 0 Refill(s), Pharmacy: [facility], 178, cm, 12/26/20 7:03:00 EDT, Height, kg, 12/26/20 7:03:00 EDT, Dosing Weight Start Date: 12/26/20 Status: Ordered tiZANidine 4 mg oral tablet (1 source) Central alpha-2 Adrenergic Agonist Start: 12-26-2020 Zanaflex 4 mg oral tablet Dose : 4 mg = 1 tab(s), Oral, q8h, # 30 tab(s), 0 Refill(s), Pharmacy: [facility], 178, cm, 12/26/20 7:03:00 EDT, Height, kg, 12/26/20 7:03:00 EDT, Dosing Weight Start Date: 12/26/20 Status: Ordered Vitamin B Complex oral capsule (1 source) Start: 09-13-2019 take 1 capsule by mouth once daily Vitamin B Complex oral capsule Dose = 1 cap(s), Oral, Daily, # 90 cap(s), 0 Refill(s) Start Date: 09/13/19 Status: Ordered Problems Problem Classification Problem Date Documented Da te Episodic/Chronic Menopausal disorders (1 source) Postmenopausal bleeding 12-26-2020 Chronic Spondylosis; intervertebral disc disorders; other back problems (1 source) Spasm of muscle of lower back 12-26-2020 Episodic Unclassified (6 sources) Patient encounter status 06-17-2021 Results Test Name Value Interpretation Reference Range Facil ity Encounters Encounter Date Encounter Type Care Provider Facility Start: 03-26-2022 End: 03-26-[address] JENN MENCHACA DPM [facility] Procedures Date Procedure Procedure Detail Performing Clinician Start: 08-30-[address] JENN MENCHACA DPM Social History Date Type Detail Facility Start: 12-26-2020 Tobacco smoking status Never s moked tobacco (finding) [facility] Sex Assigned At Female [facility] Evaluation + Plan note Note Date & Type Note Facility Evaluation + Plan note No data available for this section [facility] Hospital Discharge instructions Note Date & Type Note Facility Hospital Discharge instructions No data available for this section [facility] Progress note Note Date & Type Note Facility Progress note No data available for this section [facility] Summary Purpose Family History No Family History Records Found Advance Directives No Advanced Directives Records Found Additional Source Comments Care Team (unrecognized sect ion and content) Care Team Personnel Name: JOANNE BAGLEY WAYNE-PAEDIATRICIAN Position: P4 Advanced Practice Nurse Med Service: Active Provider Member Role: Primary Care Physician Address: Address: [address] [place] [phone] [place] Care Team Related Persons Name: ALDO RAMIREZ INFORMATION SOURCE (unrecogn ized section and content) FOR RECORDS PERTAINING TO PATIENTS WHO ARE OR HAVE BEEN ENROLLED IN A CHEMICAL DEPENDENCY/SUBSTANCEABUSE PROGRAM, SOME INFORMATION MAY BE OMITTED. This clinical summary was aggregated from multiple sources. Caution should be exercised in using it in the provision of clinical care. This summary normalizes information from multiple sources, and as a consequence, information in this document may materially change the coding, format and clinical context of patient data. In addition, data may be omitted in some cases. CLINICAL DECISIONS SHOULD BE BASED ON THE PRIMARY CLINICAL RECORDS. [facility]. provides no warranty or guarantee of the accuracy or completeness of information in this document.
[2023-11-05 07:45] LABS: T4 Free Direct 0.84 ng/dL (0.76-1.46); Thyroid Stim Hormone (TSH) 2.81 uIU/mL (0.358-3.74)
[2023-11-05 08:05] LABS: Vitamin D,25 Hydroxy 18.8 ng/mL
== END | disposition home or self-care (01) ==
LOC: LAB 06:08
PROVIDERS: PCP Internal Medicine; Referring Provider Internal Medicine; Visit Provider Internal Medicine
DX: Z13.29 Encounter for screening for other suspected endocrine disorder (principal); Z13.21 Encounter for screening for nutritional disorder
CPT/HCPCS: 36415; 82306; 84439; 84443

== ENCOUNTER → 2023-11-25 | Outpatient (CLI) | payer OTHER, SELFPAY ==
--- NOTE | 2023-11-25 10:43 | CDU_ITS ---
Reason For Study: Pulsatile tinnitus Rt. Velocities/BP Lt. Velocities/BP Prox CCA 99.5/31.5 cm/sec. Prox CCA 82.3/27.3 cm/sec. Mid CCA 99.8/29.8 cm/sec. Mid CCA 81.4/29 cm/sec. Dist CCA 69.1/24.9 cm/sec. Dist CCA 79.6/29.9 cm/sec. Prox ICA 54.2/19 cm/sec. Prox ICA 52.9/14.5 cm/sec. Mid ICA 89.4/35.5 cm/sec. Mid ICA 75.4/40.2 cm/sec. Dist ICA 47.6/17.9 cm/sec. Dist ICA 93/45.7 cm/sec. Rt. ICA/CCA = 0.9. Lt. ICA/CCA = 1.1. Prox ECA 66.7/15.1 cm/sec. Prox ECA 54.3/9 cm/sec. Rt. Vert. 40.4/14.2 cm/sec. Lt. Vert. 45.7/17.1 cm/sec. Right Extracranial There is intimal thickening but no significant atherosclerotic plaque noted in the right common carotid artery. There is heterogeneous, irregular atherosclerotic plaque noted in the right internal carotid artery. There is intimal thickening but no significant atherosclerotic plaque noted in the right external carotid artery. Antegrade flow is noted in the right vertebral artery. Left Extracranial There is intimal thickening but no significant atherosclerotic plaque noted in the left common carotid artery. There is heterogeneous, irregular atherosclerotic plaque noted in the left internal carotid artery. The atherosclerotic plaque causes acoustic shadowing. There is intimal thickening but no significant atherosclerotic plaque noted in the left external carotid artery. Antegrade flow is noted in the left vertebral artery. Procedure Carotid Duplex 49998. This is a Carotid Duplex examination using B-mode, color flow and specral Doppler. Exam performed in department. VL/Carotid Duplex Ultrasound Interpretation Summary Mild (<50%) stenosis right extracranial internal carotid. Mild (<50%) stenosis left extracranial internal carotid. Patent and antegrade vertebrals bilaterally. Ordering Physician: Lynda Galindo Referring Physician: Lynda Galindo Performed By: Arcelia Bennett RVT and Student
== END | disposition home or self-care (01) ==
LOC: CVS 10:42
PROVIDERS: PCP Internal Medicine; Referring Provider Internal Medicine; Visit Provider Internal Medicine
DX: H93.A3 Pulsatile tinnitus, bilateral (principal); I65.23 Occlusion and stenosis of bilateral carotid arteries
CPT/HCPCS: 93880

== ENCOUNTER → 2023-12-01 | Outpatient (CLI) | payer OTHER, SELFPAY ==
--- NOTE | 2023-12-01 10:10 | BI_ITS ---
MAMMOGRAPHY - BILATERAL SCREENING REASON FOR EXAM: Female, 63 years old. Routine annual screening examination. PERTINENT HISTORY: Aunts with breast cancer. Prior right excisional breast biopsy. TECHNIQUE: Digital bilateral breast ismael (3D mammographic acquisition) in the CC and MLO projections. 2-D mediolateral oblique (MLO) and craniocaudad (CC) views of both breasts were obtained. CAD: Full Field Digital Mammography with Computer Added Detection was performed. COMPARISON: Comparison is made with prior study dated July 22, 2021 and August 26, 2020. FINDINGS: Breast Composition: The breasts are heterogeneously dense, which may obscure small masses. There are no dominant masses or suspicious calcifications. Stable small benign-appearing bilateral axillary lymph nodes. No other significant abnormalities are identified. There has been no significant change since the prior study. BI/SCRN MAMM (CAD)W/ISMAEL BILAT IMPRESSION: Stable bilateral screening mammogram. Yearly follow-up mammogram recommended. (A) ASSESSMENT CATEGORY: BIRADS Category 2: Benign. A letter regarding these results will be sent to the patient by the facility within 30 days. Approximately 10% of breast cancers are not detected by mammography. A normal mammogram should not delay biopsy of a clinically suspicious abnormality. [id number] Electronically Signed: Darren Maurer MD at 11:55 EDT ,
--- NOTE | 2023-12-01 10:50 | BD_ITS ---
STUDY: DUAL ENERGY X-RAY ABSORPTIOMETRY / DXA REASON FOR EXAM: Female, 63 years old. Post Menopausal TECHNIQUE: Bone Mineral Density (BMD) measurements of lumbar spine and bilateral hips were obtained. COMPARISON: Comparison is made with prior study dated November 17, 2011. FINDINGS: Lumbar Spine (L1-L4): g/cm2 (0.760) / T-score (-2.6) / Z-score (-1.0) Findings are suggestive of osteoporosis with a high fracture risk. Left Femur Total: g/cm2 (0.798) / T-score (-1.2) / Z-score (-0.1) Left Femoral Neck: g/cm2 (0.614) / T-score (-2.1) / Z-score (-0.7) Right Femur Total: g/cm2 (0.788) / T-score (-1.3) / Z-score (-0.2) Right Femoral Neck: g/cm2 (0.653) / T-score (-1.8) / Z-score (-0.4) The T-Scores on the most recent prior examination were: Lumbar Spine (L1-L4): There has been worsening of bone density since the previous examination. Left Femur Total: which represents a worsening of 0.4%. Right Femur Total: which represents an improvement of 0.9%. BD/Dexa Bone Density Study IMPRESSION: The patient is considered osteoporotic as outlined below according to World Fritz Organization (WHO) criteria with a high fracture risk. There has been worsening of bone density since the previous examination. Reference Information: The T-score is the number of standard deviations above or below the standard which is normal for young adults at their peak bone mineral density. The World Health Organization (WHO) interprets the T-scores as follows: Above -1 Normal bone density Between -1 and -2.5 Osteopenia Equal to / or below -2.5 Osteoporosis As a practical clinical guideline, osteopenia may be graded as follows: Mild -1 through -1.5 Moderate -1.6 through -2.0 Severe -2.1 through -2.4 The Z-score is the number of standard deviations above or below age-matched controls. A Z-score of less than -1.5 would be considered abnormal. References: 1. NIH Osteoporosis and Related Bone Diseases www osteo.org 2. International Society for Clinical Densitometry www iscd.org 3. National Osteoporosis Foundation www nof.org Electronically Signed: Darren Maurer MD at 19:11 EDT ,
== END | disposition home or self-care (01) ==
LOC: OPBI 10:10
PROVIDERS: PCP Internal Medicine; Referring Provider Internal Medicine; Visit Provider Internal Medicine
DX: Z12.31 Encounter for screening mammogram for malignant neoplasm of breast (principal); Z78.0 Asymptomatic menopausal state; Z80.3 Family history of malignant neoplasm of breast
CPT/HCPCS: 77063; 77067; 77080

== ENCOUNTER → 2023-12-13 | Outpatient (CLI) | payer OTHER, SELFPAY ==
--- NOTE | 2023-12-13 12:36 | VDLE_ITS ---
Reason For Study: Left leg pain Procedure LEFT This is a venous duplex using B-mode, color GSV is normal. flow and spectral Doppler. CFV is compressible, spontaneous, phasic, Exam performed in department. competent, and demonstrates normal A preliminary report was called and/or faxed augmentation. to Gertrude PEREZ. FV is compressible, spontaneous, phasic, competent and demonstrates normal augmentation. POP V is compressible, spontaneous, phasic, competent and demonstrates normal augmentation. T/P Trunk is compressible. PTV is compressible. LT PerV is compressible. VL/Venous Duplex US, Unilateral Interpretation Summary Deep veins of the left lower extremity are patent and compressible segmentally. There is no evidence of left lower extremity deep vein thrombosis. The left great saphenous vein tiffany ears patent and compressible segmentally. Ordering Physician: Zeynep Loredo Referring Physician: Lynda Galindo Performed By: Arcelia Bennett RVT
== END | disposition home or self-care (01) ==
PROVIDERS: PCP Internal Medicine; Referring Provider Nurse Practitioner; Visit Provider Nurse Practitioner
DX: M79.662 Pain in left lower leg (principal)
CPT/HCPCS: 93971

== ENCOUNTER → 2024-06-16 | Outpatient (CLI) | payer OTHER, SELFPAY ==
[2024-06-16 15:36] LABS: Vitamin D,25 Hydroxy 27.6 ng/mL
== END | disposition home or self-care (01) ==
LOC: BIMLAB 13:24
PROVIDERS: PCP Internal Medicine; Referring Provider Internal Medicine; Visit Provider Internal Medicine
DX: M81.0 Age-related osteoporosis without current pathological fracture (principal); E55.9 Vitamin D deficiency, unspecified
CPT/HCPCS: 36415; 82306

== ENCOUNTER → 2024-12-21 | Outpatient (CLI) | payer OTHER, SELFPAY ==
[2024-12-21 07:34] LABS: Hematocrit 40.9 % (37-47); Hemoglobin 13.6 g/dL (12.0-15.0); Mean Corp Hgb Conc 33.3 g/dL (32-36); Mean Corpuscular Hgb 31.3 pg (27.0-32.0); Mean Corpuscular Volume 94.2 fL (81-99); Mean Platelet Vol. 10.1 fl (6.2-12.0); Platelet Count 270 K/mm3 (150-450); RBC Distribution Width CV 11.2 % (11.6-14.6); RBC Distribution Width SD 38.1 fl (35.1-43.9); Red Blood Count 4.34 M/mm3 (4.2-5.4); White Blood Count 5.7 K/mm3 (4.4-11.0)
[2024-12-21 08:00] LABS: Albumin, Serum 4.2 g/dL (3.4-4.8); BUN 21 mg/dL (4-19); BUN/Creat Ratio 23.2 RATIO (10-20); Creatinine, Serum 0.92 mg/dL (0.70-1.20); EST Glomerular Filtration Rate 70 (>60); Globulin 2.9 g/dL (2.2-4.2); Glucose 89 mg/dL (70-99); Protein, Total 7.1 g/dL (5.9-8.4)
[2024-12-21 08:01] LABS: ALB/GLOB Ratio 1.5 RATIO (0.9-2.4); AST(SGOT) 29 U/L (<=31); Alanine Aminotransfer ALT/SGPT 23 U/L (<=34); Alkaline Phosphatase 85 U/L (35-104); Anion Gap 10 (5-15); Calcium,Total 9.1 mg/dL (7.6-11.0); Carbon Dioxide 25.6 mmol/L (21.0-32.0); Chloride 104 mmol/L (98-108); Cholesterol 182 mg/dL (<=200); High Density Lipoprotein 50 mg/dL; Low Density Lipoprotein Calc. 120 mg/dL; Potassium 4.2 mmol/L (3.3-5.1); Sodium Level 140 mmol/L (133-145); Total Bilirubin 0.45 mg/dL (0.00-1.30); Triglycerides 62 mg/dL; Very Low Density Lipoprotein 12 mg/dL (5-40); cholesterol:hdl ratio screen 3.65
[2024-12-21 08:25] LABS: Iron 133 ug/dL (50-170); Iron Binding Capacity,Total 361 ug/dL (250-450); Iron Binding Capacity,Unsat 228 ug/dL (228-428)
[2024-12-21 08:33] LABS: Ferritin 36 ng/mL (22-378); Vitamin B12 611 pg/mL (180-914)
[2024-12-22 11:08] LABS: ANTINUCLEAR ANTIBODIES DIRECT Negative (Negative)
== END | disposition home or self-care (01) ==
LOC: LAB 06:11
PROVIDERS: PCP Internal Medicine; Referring Provider Physician Assistant; Visit Provider Physician Assistant
DX: Z00.00 Encounter for general adult medical examination without abnormal findings (principal); L65.9 Nonscarring hair loss, unspecified; M79.18 Myalgia, other site; E55.9 Vitamin D deficiency, unspecified
CPT/HCPCS: 36415; 80053; 80061; 82306; 82607; 82728; 83540; 83550; 84443; 85027; 86038; 86225; 86235

== ENCOUNTER → 2025-02-22 | Outpatient (CLI) | payer OTHER, SELFPAY ==
--- NOTE | 2025-02-22 12:00 | BI_ITS ---
EXAM: SCRN MAMM (CAD)W/ISMAEL BILAT DATE: 02/22/2025 CLINICAL HISTORY: F, Age 64 y/o , BREAST CANCER SCREENING Aunt with breast cancer. History of prior right excisional breast biopsy. TECHNIQUE: SCRN MAMM (CAD)W/ISMAEL BILAT COMPARISON: Prior exam(s) dated December 01, 2023.. FINDINGS: TISSUE DENSITY: The breasts are heterogeneously dense, which may obscure small masses. Bilateral Breast Mammographic Findings: No significant masses, calcifications or other abnormalities are identified. Stable small benign-appearing bilateral axillary lymph nodes. No suspicious masses, areas of developing architectural distortion, or suspicious calcifications. There has been no significant interval change. BI/SCRN MAMM (CAD)W/ISMAEL BILAT IMPRESSION: Stable examination. OVERALL FINAL ASSESSMENT BI-RADS 2: BENIGN RECOMMEND ANNUAL MAMMOGRAPHIC SCREENING. RECOMMENDATION: Routine annual follow-up in 1 Year A letter with findings and recommendations will be mailed to the patient. Reading Location: [facility]
== END | disposition home or self-care (01) ==
LOC: OPBI 11:42
PROVIDERS: PCP Internal Medicine; Referring Provider Internal Medicine; Visit Provider Internal Medicine
DX: Z12.31 Encounter for screening mammogram for malignant neoplasm of breast (principal); Z80.3 Family history of malignant neoplasm of breast
CPT/HCPCS: 77063; 77067

== ENCOUNTER → 2025-04-24 | Outpatient (CLI) | payer OTHER, SELFPAY ==
[2025-04-27 11:08] LABS: HPV APTIMA, High Risk Negative (Negative)
== END | disposition home or self-care (01) ==
LOC: LABSPEC 16:35
PROVIDERS: PCP Internal Medicine; Visit Provider Nurse Practitioner Women's Health
DX: Z12.4 Encounter for screening for malignant neoplasm of cervix (principal)
CPT/HCPCS: 87624; 88175; G0145

== ENCOUNTER 2025-06-28 11:24 | Emergency (ER) | payer OTHER, SELFPAY ==
[2025-06-28] VITALS (15 sets, daily range): BP systolic 133–201; BP diastolic 82–104; PULSE 62–92; RESP 12–37; TEMP 36.7; O2SAT 97–100; BMI 24.2
--- NOTE | 2025-06-28 11:34 | EKG12_ITS ---
Test Reason : SOB/JAW PAIN
--- NOTE | 2025-06-28 11:50 | EX.ED.DYSGE1 ---
HPI History of Present Illness Chief Complaint: Abd Pain Narrative Narrative: Patient is a 65-year-old female past medical history of vitamin D deficiency, osteoporosis who presents to the emergency department with a chief complaint of not feeling well overall. States that she was at home earlier today and noted that she was studying/reviewing stroke material and notes that she had developed a slight headache during this that had progressed to worsen she states that she took some Tylenol with no for this headache that got better but she notes that she just feels off and notes that she is having some right sided jaw pain noted that she also is having some shortness of breath. [facility] Medical History Musculoskeletal pain Vitamin D deficiency Osteoporosis Abscess of [place] gland Pulsatile tinnitus of both ears Hypertension Home Medications ?Medication ?Instructions ?Recorded ?Last Taken ?Type vitamin B complex (B 1 tab PO QDAY 01/25/18 Unknown History Complex-Vitamin B12 tablet) elastic bandage 6 X 1.8 yard #1 ea 12/07/23 Unknown Rx biotin 1,000 mcg chewable tablet 1,000 mcg PO QDAY 12/13/24 Unknown History cholecalciferol (vitamin D3) 25 25 mcg PO QDAY 12/13/24 Unknown History mcg (1,000 unit) capsule magnesium oxide 500 mg capsule 500 mg PO DAILY PRN 12/13/24 Unknown History clobetasol 0.05 % topical ointment 1 applic topical .COMPLEX #15 grams 04/24/25 Unknown Rx estradiol 0.01% (0.1 mg/gram) See Rx Instructions vaginal 04/24/25 Unknown Rx vaginal cream .COMPLEX #42.5 grams Allergy/AdvReac Type Severity Reaction Status Date / Time acetaminophen (From Allergy Severe Unknown Verified 06/28/25 11:27 Darvocet-N) propoxyphene (From Allergy Severe Unknown Verified 06/28/25 11:27 Darvocet-N) codeine AdvReac Upset Verified 06/28/25 11:27 Stomach Family History Aunt Cancer breast Mother CVA (cerebral vascular accident) Father CVA (cerebral vascular accident) Brother CVA (cerebral vascular accident) Other Diabetes Heart disease Social History household members: spouse housing: house current occupational status: employed current occupation: Nurse [employer] Smoking Status: Never smoker alcohol intake: never substance use type: does not use what type of physical activity do you participate in: none seatbelt use: always do you feel safe at home: Yes additional social history: - [employer] ROS ROS ED ROS Narrative Constitutional: Complains of headache as noted above denies lightheadedness or dizziness Eyes: Denies double vision blurry vision Cardiovascular: Denies chest pain or palpitations Respiratory: Complains of shortness of breath as noted above denies coughing wheezing Abdomen: Denies abdominal pain nausea vomit diarrhea : Denies urinary symptoms Neurological: Denies numbness, weakness, tingling Musculoskeletal: Denies back pain Skin: Denies any rashes or lesions EXAM Physical Exam Narrative Exam Narrative: General: Patient is lying in bed rest comfortably did not appear to be in acute distress Head: Atraumatic, normocephalic Eyes: PERRL bilaterally, EOMI bilaterally, no conjunctival injection noted Neck: Soft, supple, trachea midline Cardiovascular: Regular rate and rhythm Respiratory: Clear to auscultation bilaterally Abdomen: Soft, nondistended, no tenderness to palpation Extremities: Radial pulses +2/4 in bilateral extremities, +5/5 strength noted in the bilateral lower extremities Neurological: Patient following commands knew that she was at [facility] the year is 2024. NIH of 0 GCS 15 Skin: Warm, dry, intact no rashes or lesions noted Const Vital Signs: 06/28/25 11:25 06/28/25 12:15 06/28/25 12:25 Temperature 98.1 F Temperature Source Oral Pulse Rate 92 67 Respiratory Rate 18 16 Respiratory Effort Normal Blood Pressure 201/104 H 150/82 H Blood Pressure Mean 136 104 Pulse Ox 98 100 Oxygen Delivery Method Room Air Room Air Room Air 06/28/25 12:41 06/28/25 12:45 06/28/25 13:00 Temperature Temperature Source Pulse Rate 73 63 64 Respiratory Rate 14 16 18 Respiratory Effort Blood Pressure 165/85 H 163/84 H Blood Pressure Mean 109 107 Pulse Ox 97 99 97 Oxygen Delivery Method Room Air Room Air 06/28/25 13:15 06/28/25 13:30 06/28/25 13:45 Temperature Temperature Source Pulse Rate 62 73 Respiratory Rate 15 20 H Respiratory Effort Blood Pressure 160/85 H 148/86 H 155/93 H Blood Pressure Mean 108 105 112 Pulse Ox 97 Oxygen Delivery Method Room Air 06/28/25 14:00 06/28/25 14:15 06/28/25 14:30 Temperature Temperature Source Pulse Rate 74 Respiratory Rate 37 H Respiratory Effort Blood Pressure 133/85 H 145/91 H 147/89 H Blood Pressure Mean 99 107 106 Pulse Ox 97 Oxygen Delivery Method Room Air 06/28/25 14:45 06/28/25 15:00 06/28/25 15:04 Temperature 98.1 F Temperature Source Pulse Rate 66 Respiratory Rate 12 Respiratory Effort Blood Pressure 146/83 H 140/85 H 140/85 H Blood Pressure Mean 101 100 103 Pulse Ox 97 99 98 Oxygen Delivery Method MDM MDM MDM Narrative Medical decision making narrative: Patient is a 65-year-old female who presented to the emergency department the chief complaint of generalized not feeling well, right jaw pain, headache. On the differential diagnose includes but not limited to ACS, pneumonia, pneumothorax, electrolyte abnormality, hypertensive emergency. Once workup is obtained reviewed she will be reevaluated. Patient CBC reviewed and showed no evidence leukocytosis white blood cell normal at 5.6, hemoglobin 14.5, platelet count was noted be 282. Patient's sodium was notably normal at 130, potassium normal 4.1, creatinine 0.81. Patient AST and ALT are 20 and 31 respectively, troponin was 6 and a delta troponin of 7. Patient's EKG reviewed showed sinus rhythm at a rate of 79 bpm NJ interval 164. Patient's proBNP less than 36. Patient lipase, 27, urinalysis reviewed showed no evidence of infection. Patient's chest x-ray reviewed by myself and by radiology showed hyperinflation otherwise no acute cardiopulmonary processes. On reevaluation the patient she is feeling better she would like to go home at this point time. She is vies follow-up with her doctor in outpatient setting. She is vies to renally take her blood pressure 2-3 times a day write this down and keep a log of this and take it to her doctor further review to see if they need to add a antihypertensive or not. Advise return if worsening symptoms or any concerns. at bedside is also agreeable to this plan all question concerns answered she was discharged home in stable condition Lab Data Labs: Laboratory Results - last 24 hr 1006/28/25 06/28/25 11:45 11:50 13:50 WBC 5.6 RBC 4.56 Hgb 14.5 Hct 42.7 MCV 93.6 MCH 31.8 MCHC 34.0 RDW Std Deviation 40.0 RDW Coeff of [place] 11.7 Plt Count 282 MPV 9.5 Immature Gran % (Auto) 0.700 Neut % (Auto) 47.6 Lymph % (Auto) 40.2 [place] % (Auto) 9.5 Eos % (Auto) 1.3 Baso % (Auto) 0.7 Absolute Neuts (auto) 2.6 Absolute Lymphs (auto) 2.23 Nucleated RBC % 0 Sodium 138 Potassium 4.1 Chloride 102 Carbon Dioxide 25.7 Anion Gap 11 BUN 19 Creatinine 0.81 Estim Creat Clear Calc 75.88 Est GFR (MDRD) Non-Af 81 BUN/Creatinine Ratio 23.9 H Glucose 98 Calcium 10.1 Total Bilirubin 0.36 AST 29 ALT 31 Alkaline Phosphatase 92 Troponin T High Sens 6 Troponin T Hi Sens 2 Hr 7 Troponin T Hi Sens 4Hr Cancelled NT pro BNP II < 36 Total Protein 7.7 Albumin 4.5 Globulin 3.2 Albumin/Globulin Ratio 1.4 Lipase 27 Urine Color Yellow Urine Clarity Sl. Cloudy Urine pH 6.0 Ur Specific [place] 1.015 Urine Protein Negative Urine Glucose (UA) Normal Urine Ketones Negative Urine Occult Blood Negative Urine Nitrite Negative Urine Bilirubin Negative Urine Urobilinogen Normal Ur Leukocyte Esterase 25 H Urine RBC 0 SEEN Urine WBC 0-5 SEEN Ur Squamous Epith Cells 0-5 SEEN Urine Bacteria 0 SEEN Urine Mucus 0 SEEN Radiography Diagnostic Testing: Clinical Impression(s) from Imaging Studies Chest X-Ray 06/28/25 12:22 IMPRESSION: Hyperinflation. The lungs are clear. Reading Location: [id number] Discharge Plan Triage Chief Complaint: Abd Pain Other Complaint: Shortness of Breath ED Provider: Buster Diallo Dx/Rx/DC Orders Clinical Impression: Osteoporosis, Vitamin D deficiency, Headache Prescriptions: No Action vitamin B complex [B Complex-Vitamin B12] tablet 1 tab PO QDAY magnesium oxide 500 mg capsule 500 mg PO DAILY PRN (DME) elastic bandage 6 X 1.8 -yard bandage See Rx Instructions .Route Qty: 1 0RF Rx Instructions: As directed cholecalciferol (vitamin D3) 25 mcg (1,000 unit) capsule 25 mcg PO QDAY biotin 1,000 mcg tablet,chewable 1,000 mcg PO QDAY clobetasol 0.05 % ointment 1 applic topical .COMPLEX Qty: 15 2RF Rx Instructions: Apply small amount to affected area daily X 5 days prn with symptoms estradiol 0.01 % (0.1 mg/gram) cream See Rx Instructions vaginal .COMPLEX Qty: 42.5 2RF Rx Instructions: small amount(.25mg) as directed vaginal every other day X 4 weeks then twice a week; Primary Care Provider: Lynda Galindo Referrals: Lynda Galindo MD [Primary Care Provider, Internal Medicine] Activity Restrictions/Additional Instructions: Keep a blood pressure log by randomly taking her blood pressure 2-3 times a day write down what the blood pressure was in time he took it and take this to your doctor further review. Return with worsening symptoms or any concerns. Your blood work did not show any acute findings today. Print Language: Yoruba Disposition Disposition: Home, Self Care
[2025-06-28 11:53] LABS: Mucous, Urine 0 SEEN /hpf (<or=2+); Red Blood Cells-Urine 0 SEEN /hpf (0-5)
[2025-06-28 11:56] LABS: Hematocrit 42.7 % (37-47); Hemoglobin 14.5 g/dL (12.0-15.0); Immature Granulocytes Count 0.040 X10^3/uL (0.0-0.0); Mean Corp Hgb Conc 34.0 g/dL (32-36); Mean Corpuscular Volume 93.6 fL (81-99); Mean Platelet Vol. 9.5 fl (6.2-12.0); NRBC Flagged by Analyzer 0 % (0-5); Platelet Count 282 K/mm3 (150-450); RBC Distribution Width CV 11.7 % (11.6-14.6); RBC Distribution Width SD 40.0 fl (35.1-43.9); Red Blood Count 4.56 M/mm3 (4.2-5.4); White Blood Count 5.6 K/mm3 (4.4-11.0)
[2025-06-28 12:10] LABS: Color, Urine Yellow (Yellow); Glucose, Dipstick Normal (Normal); Ketone-Dipstick Negative (Negative); Leukocyte Esterase-Dipstick 25 /ul (Negative); Nitrite-Dipstick Negative (Negative); Occult Blood-Urine Negative /ul (Negative); Protein-Dipstick Negative (Negative); Specific Gravity, Urine 1.015 (1.002-1.030); Urine Bilirubin Dipstick Negative (Negative)
[2025-06-28] MEDS: 0.9% Normal Saline (1000mL) 1,000 ML 999 ML IV (12:10)
[2025-06-28 12:21] LABS: AST(SGOT) 29 U/L (<=31); Alanine Aminotransfer ALT/SGPT 31 U/L (<=34); Albumin, Serum 4.5 g/dL (3.4-4.8); Alkaline Phosphatase 92 U/L (35-104); Anion Gap 11 (5-15); BUN 19 mg/dL (4-19); BUN/Creat Ratio 23.9 RATIO (10-20); Calcium,Total 10.1 mg/dL (7.6-11.0); Carbon Dioxide 25.7 mmol/L (21.0-32.0); Chloride 102 mmol/L (98-108); Estimated Creatinine Clearance 75.88 ml/min (50-250); Globulin 3.2 g/dL (2.2-4.2); Glucose 98 mg/dL (70-99); Lipase 27 U/L (13-75); Potassium 4.1 mmol/L (3.3-5.1); Troponin T High Sensitivity 6 ng/L (<=14)
[2025-06-28 12:22] LABS: Squamous Epithelial Cells - UA 0-5 SEEN /hpf (5-10)
--- NOTE | 2025-06-28 12:22 | RAD_ITS ---
PROCEDURE: RAD/Chest PA and Lateral
[2025-06-28 12:53] LABS: Pro- Brain NATRIURETIC PEPTIDE < 36 pg/mL (<=900)
[2025-06-28 14:42] LABS: Troponin T High Sens 2 HR 7 ng/L (<=14)
== END 2025-06-28 15:13 | disposition home or self-care (01) ==
PROVIDERS: Emergency Provider Emergency Medicine; PCP Internal Medicine; Visit Provider Emergency Medicine
DX: R10.9 Unspecified abdominal pain (principal); R51.9 Headache, unspecified; E55.9 Vitamin D deficiency, unspecified; M81.0 Age-related osteoporosis without current pathological fracture; R68.84 Jaw pain; R06.02 Shortness of breath; Z79.899 Other long term (current) drug therapy
CPT/HCPCS: 71046; 80053; 81001; 83690; 83880; 84484; 85025; 93005; 96360; 96361; 99284; A4216

== ENCOUNTER → 2025-07-05 | Outpatient (CLI) | payer OTHER, SELFPAY ==
[2025-07-05 09:27] LABS: T4 Total, Thyroxin 6.6 ug/dL (4.8-13.9)
== END | disposition home or self-care (01) ==
PROVIDERS: PCP Internal Medicine; Referring Provider Nurse Practitioner Family; Visit Provider Nurse Practitioner Family
DX: L65.9 Nonscarring hair loss, unspecified (principal); R53.83 Other fatigue
CPT/HCPCS: 36415; 84436; 84443

== ENCOUNTER → 2025-07-25 | Outpatient (CLI) | payer OTHER, SELFPAY ==
--- NOTE | 2025-07-25 12:34 | ECHOD_ITS ---
Reason For Study Reason For Study: Murmur Procedure This was a 2D Doppler, Color Flow transthoracic echocardiogram. Exam performed in department. Left Ventricle Normal LV size. Left ventricular systolic function is normal. The left ventricular ejection fraction is 65 %. Stage 1 diastolic dysfunction. No regional wall motion abnormalities noted. Right Ventricle Normal RV size. Normal systolic function. Atria Normal left atrium. Normal right atrium. Mitral Valve Normal mitral valve. Tricuspid Valve Normal tricuspid valve. Mild (1+) tricuspid valve insufficiency. Aortic Valve Normal aortic valve. Pulmonic Valve Normal pulmonic valve. Great Vessels Normal aortic root. The pulmonary artery is normal size. Inferior vena cava collapse with respiration. Pericardium/Pleural No pericardial effusion. MMode/2D Measurements & Calculations LVIDd: 4.0 cm IVSd: 0.92 cm Ao root diam: 3.0 cm LVIDs: 2.5 cm LVPWd: 0.87 cm RVDd: 3.5 cm FS: 37.8 % LAV(MOD-bp): 33.1 ml LVAd ap4: 22.3 cm2 SV(MOD-sp4): 36.8 ml LAV(MOD-bp) Indexed: 17.1 ml/m2 LVLd ap4: 7.0 cm SI(MOD-sp4): 19.0 ml/m2 LAV(MOD-sp2): 28.4 ml EDV(MOD-sp4): 57.8 ml LAV(MOD-sp4): 34.4 ml EDV(sp4-el): 60.2 ml LVAs ap4: 12.3 cm2 LVLs ap4: 5.9 cm ESV(MOD-sp4): 21.1 ml ESV(sp4-el): 21.6 ml EF(MOD-sp4): 63.6 % EF(sp4-el): 64.1 % SV(sp4-el): 38.6 ml LA A4 area: 13.3 cm2 LA dimension(2D): 3.5 cm RA A4 area: 12.5 cm2 TAPSE: 1.6 cm Time Measurements MV dec time: 0.21 sec Doppler Measurements & Calculations MV E max bunny: 62.3 cm/sec Lat Peak E' Bunny: 10.6 cm/sec Med Peak E' Bunny: 8.8 cm/sec MV A max bunny: 65.9 cm/sec E/E' lat: 5.8 E/E' med: 7.0 MV E/A: 0.94 MV V2 max: 84.1 cm/sec MV P1/2t max bunny: 85.0 cm/sec Ao V2 max: 155.8 cm/sec MV max P.8 mmHg MV P1/2t: 82.8 msec Ao max P.7 mmHg MV V2 mean: 44.8 cm/sec Ao V2 mean: 115.1 cm/sec MV mean P.98 mmHg MV dec slope: 300.8 cm/sec2 Ao mean P.7 mmHg MV V2 VTI: 24.3 cm MVA(P1/2t): 2.7 cm2 Ao V2 VTI: 28.7 cm AV (velocity ratio): 0.84 LV V1 max: 127.2 cm/sec PA V2 max: 82.4 cm/sec TR max bunny: 213.9 cm/sec LV V1 max P.5 mmHg TR max P.3 mmHg LV V1 mean P.7 mmHg LV V1 mean: 90.9 cm/sec LV V1 VTI: 24.1 cm ECHO/Echo Complete Interpretation Summary Normal LV size. Left ventricular systolic function is normal. The left ventricular ejection fraction is 65 %. Stage 1 diastolic dysfunction. Ordering Physician: Dorota Nelson Referring Physician: Dorota Nelson Performed By: Danilo Villalpando RCS
== END | disposition home or self-care (01) ==
LOC: CVS 12:31
PROVIDERS: PCP Internal Medicine; Referring Provider Nurse Practitioner Family; Visit Provider Nurse Practitioner Family
DX: R01.1 Cardiac murmur, unspecified (principal)
CPT/HCPCS: 93306